=== PATIENT | female | born 1960 | race Two or more races ===

== ENCOUNTER 2016-12-08 18:19 | Emergency (ER) | payer MEDICARE, OTHER ==
[~2016-12-08] VITALS: Ht 152.4 cm; Wt 46.7 kg
[2016-12-08 18:59] LABS: ADD UA MICROSCOPIC YES; KETONES,URINE Negative (NEGATIVE); LEUKOCYTE ESTERASE ,URINE Negative (NEGATIVE)
[2016-12-08] MEDS ORDERED: IV NS 0.9% 1,000 ML BAG IV ONE (19:00)
[2016-12-08] MEDS ORDERED: KETOROLAC TROMETHAMINE INJ 30 MG/ML VIAL IV ONE (19:00)
[2016-12-08 19:09] LABS: ADD URINE CULTURE NO; RBC,URINE 0-2 /HPF (0-2); WBC,URINE 0-2 /HPF (0-3)
[2016-12-08] MEDS ORDERED: KETOROLAC TROMETHAMINE 15 MG/ML VIAL ONE (19:09)
[2016-12-08] MEDS ORDERED: IV SET PRIMARY 1 EA INFUS.SET MC ONE (19:09)
[2016-12-08] MEDS ORDERED: IV NS 0.9% 1,000 ML ONE (19:10)
[2016-12-08 19:15] LABS: BASOPHILS # (AUTO) 0.1 /CMM (0.0-0.2); BASOPHILS % (AUTO) 0.5 % (0.0-2.0); DIFF TOTAL % 100 %; EOSINOPHILS # (AUTO) 0.2 /CMM (0.0-0.7); HEMATOCRIT 39 % (33-45); HEMOGLOBIN 13.1 g/dL (11.5-14.8); LYMPHOCYTES # (AUTO) 2.5 /CMM (0.8-4.8); LYMPHOCYTES % (AUTO) 23.7 % (20.0-44.0); MEAN CORPUSCULAR HEMOGLOBIN 30 PG (26.0-33.0); MEAN CORPUSCULAR HGB CONC 34 g/dl (31.0-36.0); MEAN CORPUSCULAR VOLUME 88 fL (82-100); MONOCYTES # (AUTO) 0.7 /CMM (0.1-1.30); MONOCYTES % (AUTO) 6.3 % (2.0-12.0); NEUTROPHILS # (AUTO) 7.2 /CMM (1.8-8.9); NEUTROPHILS % (AUTO) 67.5 % (43.0-81.0); PLATELET COUNT (AUTO) 150 /CMM (150-450); RED BLOOD CELL COUNT(AUTO) 4.39 MIL/uL (4.0-5.2); WHITE BLOOD COUNT (AUTO) 10.7 K/uL (4.3-11.0)
[2016-12-08 19:21] LABS: CALCIUM, SERUM 7.7 mg/dL (8.5-10.1); CREATININE 0.9 mg/dL (0.6-1.3); POTASSIUM 3.1 mmol/L (3.5-5.1)
[2016-12-08] MEDS ORDERED: CT SWABBABLE VALVE TRANS SET 1 EA INFUS.SET MC ONE (19:32)
[2016-12-08] MEDS ORDERED: IOHEXOL-300 100 ML VIAL IV ONE (19:32)
[2016-12-08] MEDS ORDERED: IV NS 0.9% 250 ML IV ONE (19:32)
[2016-12-08] MEDS ORDERED: POTASSIUM CHLORIDE 20 MEQ TAB.PRT.SR PO ONE ×2 (20:12→20:30)
[2016-12-08] MEDS ORDERED: HYDROCODONE/APAP 10/325MG 1 EA TABLET ONE (22:22)
[2016-12-08] MEDS ORDERED: HYDROCODONE/APAP 10/325MG 1 EA TABLET PO ONE (22:30)
[2016-12-08 22:45] VITALS: BP 130/64
== END 2016-12-08 22:46 | disposition home or self-care (01) ==
LOC: ER 18:21
DX: R10.2 Pelvic and perineal pain (principal); R22.9 Localized swelling, mass and lump, unspecified; I10 Essential (primary) hypertension; G89.29 Other chronic pain; F17.210 Nicotine dependence, cigarettes, uncomplicated
CPT/HCPCS: 36415; 74160; 80048; 81001; 85025; 96374; 99285; A4606 ×2; J1885; J7030; J7050; Q9967; 81000-TC; Z7610

== ENCOUNTER 2019-07-13 13:20 | Outpatient (CLI) | payer MEDICARE, OTHER | END 2019-07-13 23:59 | disposition home health service (06) | LOC: WOU 13:20 | PROVIDERS: ATTEND Surgery | DX: T81.89XA Other complications of procedures, not elsewhere classified, initial encounter (principal); C22.9 Malignant neoplasm of liver, not specified as primary or secondary; B18.2 Chronic viral hepatitis C; E46 Unspecified protein-calorie malnutrition; Z68.20 Body mass index [BMI] 20.0-20.9, adult; R64 Cachexia; F17.210 Nicotine dependence, cigarettes, uncomplicated | CPT/HCPCS: 11043; A6407 ==

== ENCOUNTER 2019-07-20 13:24 | Outpatient (CLI) | payer MEDICARE, OTHER | END 2019-07-20 23:59 | disposition home health service (06) | LOC: WOU 13:24 | PROVIDERS: ATTEND Surgery | DX: T81.89XA Other complications of procedures, not elsewhere classified, initial encounter (principal); C22.9 Malignant neoplasm of liver, not specified as primary or secondary; B19.20 Unspecified viral hepatitis C without hepatic coma; E46 Unspecified protein-calorie malnutrition; Z68.20 Body mass index [BMI] 20.0-20.9, adult; R64 Cachexia; F17.210 Nicotine dependence, cigarettes, uncomplicated | CPT/HCPCS: 11043; J3490 ==

== ENCOUNTER 2019-08-03 13:45 | Outpatient (CLI) | payer MEDICARE, OTHER | END 2019-08-03 23:59 | disposition home health service (06) | LOC: WOU 13:45 | PROVIDERS: ATTEND Surgery | DX: T81.89XA Other complications of procedures, not elsewhere classified, initial encounter (principal); C22.9 Malignant neoplasm of liver, not specified as primary or secondary; F17.210 Nicotine dependence, cigarettes, uncomplicated; B19.20 Unspecified viral hepatitis C without hepatic coma; E46 Unspecified protein-calorie malnutrition; Z68.20 Body mass index [BMI] 20.0-20.9, adult; R64 Cachexia; Z79.899 Other long term (current) drug therapy | CPT/HCPCS: 11043 ==

== ENCOUNTER 2019-08-10 13:25 | Outpatient (CLI) | payer MEDICARE, OTHER | END 2019-08-10 23:59 | disposition home health service (06) | LOC: WOU 13:25 | PROVIDERS: ATTEND Surgery | DX: T81.89XA Other complications of procedures, not elsewhere classified, initial encounter (principal); C22.9 Malignant neoplasm of liver, not specified as primary or secondary; B18.2 Chronic viral hepatitis C; F17.210 Nicotine dependence, cigarettes, uncomplicated; E46 Unspecified protein-calorie malnutrition; Z68.20 Body mass index [BMI] 20.0-20.9, adult; R64 Cachexia | CPT/HCPCS: 11043 ==

== ENCOUNTER 2019-08-24 13:53 | Outpatient (CLI) | payer MEDICARE, OTHER | END 2019-08-24 23:59 | disposition home health service (06) | LOC: WOU 13:53 | PROVIDERS: ATTEND Surgery | DX: T81.89XA Other complications of procedures, not elsewhere classified, initial encounter (principal); C22.9 Malignant neoplasm of liver, not specified as primary or secondary; B18.2 Chronic viral hepatitis C; E46 Unspecified protein-calorie malnutrition; Z68.20 Body mass index [BMI] 20.0-20.9, adult; R64 Cachexia; F17.210 Nicotine dependence, cigarettes, uncomplicated; Z79.899 Other long term (current) drug therapy | CPT/HCPCS: 11043; A6407 ==

== ENCOUNTER 2019-09-07 13:12 | Outpatient (CLI) | payer MEDICARE, OTHER | END 2019-09-07 23:59 | disposition home health service (06) | LOC: WOU 13:12 | PROVIDERS: ATTEND Surgery | DX: T81.89XA Other complications of procedures, not elsewhere classified, initial encounter (principal); C22.9 Malignant neoplasm of liver, not specified as primary or secondary; B18.2 Chronic viral hepatitis C; E46 Unspecified protein-calorie malnutrition; Z68.20 Body mass index [BMI] 20.0-20.9, adult; R64 Cachexia; Z79.899 Other long term (current) drug therapy | CPT/HCPCS: 11043; A6407 ==

== ENCOUNTER 2019-09-21 14:00 | Outpatient (CLI) | payer MEDICARE, OTHER | END 2019-09-21 23:59 | disposition home health service (06) | LOC: WOU 14:00 | PROVIDERS: ATTEND Surgery | DX: T81.89XA Other complications of procedures, not elsewhere classified, initial encounter (principal); C22.9 Malignant neoplasm of liver, not specified as primary or secondary; B18.2 Chronic viral hepatitis C; E46 Unspecified protein-calorie malnutrition; Z68.20 Body mass index [BMI] 20.0-20.9, adult; R64 Cachexia; F17.210 Nicotine dependence, cigarettes, uncomplicated; I10 Essential (primary) hypertension; Z92.21 Personal history of antineoplastic chemotherapy; Z79.899 Other long term (current) drug therapy | CPT/HCPCS: 11043 ==

== ENCOUNTER 2019-09-28 13:30 | Outpatient (CLI) | payer MEDICARE, OTHER | END 2019-09-28 23:59 | disposition home health service (06) | LOC: WOU 13:30 | PROVIDERS: ATTEND Surgery | DX: T81.89XA Other complications of procedures, not elsewhere classified, initial encounter (principal); C22.9 Malignant neoplasm of liver, not specified as primary or secondary; B18.2 Chronic viral hepatitis C; E46 Unspecified protein-calorie malnutrition; Z68.20 Body mass index [BMI] 20.0-20.9, adult; R64 Cachexia; F17.210 Nicotine dependence, cigarettes, uncomplicated; Z92.21 Personal history of antineoplastic chemotherapy; Z79.899 Other long term (current) drug therapy | CPT/HCPCS: 11043 ==

== ENCOUNTER 2019-10-19 12:30 | Outpatient (CLI) | payer MEDICARE, OTHER | END 2019-10-19 23:59 | disposition home health service (06) | LOC: WOU 12:30 | PROVIDERS: ATTEND Surgery | DX: T81.89XA Other complications of procedures, not elsewhere classified, initial encounter (principal); C22.9 Malignant neoplasm of liver, not specified as primary or secondary; B18.2 Chronic viral hepatitis C; F17.210 Nicotine dependence, cigarettes, uncomplicated; E46 Unspecified protein-calorie malnutrition; Z68.20 Body mass index [BMI] 20.0-20.9, adult; R64 Cachexia; Z92.21 Personal history of antineoplastic chemotherapy; Z79.899 Other long term (current) drug therapy | CPT/HCPCS: 11043 ==

== ENCOUNTER 2019-11-09 12:30 | Outpatient (CLI) | payer MEDICARE, OTHER, MEDICAID | END 2019-11-09 23:59 | disposition home health service (06) | LOC: WOU 12:30 | PROVIDERS: ATTEND Surgery | DX: T81.89XA Other complications of procedures, not elsewhere classified, initial encounter (principal); C22.9 Malignant neoplasm of liver, not specified as primary or secondary; B18.2 Chronic viral hepatitis C; F17.210 Nicotine dependence, cigarettes, uncomplicated; Z79.899 Other long term (current) drug therapy | CPT/HCPCS: 11043 ==

== ENCOUNTER 2019-11-23 13:30 | Outpatient (CLI) | payer MEDICARE, OTHER | END 2019-11-23 23:59 | disposition home health service (06) | LOC: WOU 13:30 | PROVIDERS: ATTEND Surgery | DX: T81.89XA Other complications of procedures, not elsewhere classified, initial encounter (principal); C22.9 Malignant neoplasm of liver, not specified as primary or secondary; B18.2 Chronic viral hepatitis C; E46 Unspecified protein-calorie malnutrition; Z68.20 Body mass index [BMI] 20.0-20.9, adult; I10 Essential (primary) hypertension; F17.210 Nicotine dependence, cigarettes, uncomplicated; Z92.21 Personal history of antineoplastic chemotherapy; Z79.899 Other long term (current) drug therapy | CPT/HCPCS: 11042 ==

== ENCOUNTER 2019-12-14 09:15 | Outpatient (CLI) | payer MEDICARE, OTHER | END 2019-12-14 23:59 | disposition home health service (06) | LOC: WOU 09:15 | PROVIDERS: ATTEND Surgery | DX: T81.89XA Other complications of procedures, not elsewhere classified, initial encounter (principal); C22.9 Malignant neoplasm of liver, not specified as primary or secondary; B18.2 Chronic viral hepatitis C; R64 Cachexia; E46 Unspecified protein-calorie malnutrition; Z68.20 Body mass index [BMI] 20.0-20.9, adult; F17.210 Nicotine dependence, cigarettes, uncomplicated; I10 Essential (primary) hypertension; Z79.899 Other long term (current) drug therapy; Z92.21 Personal history of antineoplastic chemotherapy | CPT/HCPCS: 11043; A6407; J3490 ==

== ENCOUNTER 2019-12-16 09:30 | Outpatient (CLI) | payer MEDICARE, OTHER | END 2019-12-16 23:59 | disposition home health service (06) | LOC: WOU 09:30 | PROVIDERS: ATTEND Surgery | DX: T81.89XA Other complications of procedures, not elsewhere classified, initial encounter (principal); F17.210 Nicotine dependence, cigarettes, uncomplicated; B18.2 Chronic viral hepatitis C; Z92.21 Personal history of antineoplastic chemotherapy; E46 Unspecified protein-calorie malnutrition; C22.8 Malignant neoplasm of liver, primary, unspecified as to type | CPT/HCPCS: 11043; A6407 ==

== ENCOUNTER 2019-12-21 08:50 | Outpatient (CLI) | payer MEDICARE, OTHER | END 2019-12-21 23:59 | disposition home health service (06) | LOC: WOU 08:50 | PROVIDERS: ATTEND Surgery | DX: T81.89XA Other complications of procedures, not elsewhere classified, initial encounter (principal); C22.9 Malignant neoplasm of liver, not specified as primary or secondary; B18.2 Chronic viral hepatitis C; E46 Unspecified protein-calorie malnutrition; Z68.20 Body mass index [BMI] 20.0-20.9, adult; R64 Cachexia; Z79.899 Other long term (current) drug therapy | CPT/HCPCS: 11043 ==

== ENCOUNTER 2019-12-28 09:30 | Outpatient (CLI) | payer MEDICARE, OTHER | END 2019-12-28 23:59 | disposition home health service (06) | LOC: WOU 09:30 | PROVIDERS: ATTEND Surgery | DX: T81.89XA Other complications of procedures, not elsewhere classified, initial encounter (principal); C22.9 Malignant neoplasm of liver, not specified as primary or secondary; B18.2 Chronic viral hepatitis C; E46 Unspecified protein-calorie malnutrition; Z68.20 Body mass index [BMI] 20.0-20.9, adult; R64 Cachexia; Z79.899 Other long term (current) drug therapy; F17.210 Nicotine dependence, cigarettes, uncomplicated | CPT/HCPCS: 11043 ==

== ENCOUNTER 2019-12-30 14:00 | Outpatient (CLI) | payer MEDICARE, OTHER | END 2019-12-30 23:59 | disposition home health service (06) | LOC: WOU 14:00 | PROVIDERS: ATTEND Surgery | DX: T81.89XA Other complications of procedures, not elsewhere classified, initial encounter (principal); B18.2 Chronic viral hepatitis C; Z92.21 Personal history of antineoplastic chemotherapy; F17.210 Nicotine dependence, cigarettes, uncomplicated; I10 Essential (primary) hypertension; E46 Unspecified protein-calorie malnutrition | CPT/HCPCS: 11043 ==

== ENCOUNTER 2020-01-04 09:10 | Outpatient (CLI) | payer MEDICARE, OTHER | END 2020-01-04 23:59 | disposition home health service (06) | LOC: WOU 09:10 | PROVIDERS: ATTEND Surgery | DX: T81.89XA Other complications of procedures, not elsewhere classified, initial encounter (principal); C22.8 Malignant neoplasm of liver, primary, unspecified as to type; B18.2 Chronic viral hepatitis C; E46 Unspecified protein-calorie malnutrition; Z68.20 Body mass index [BMI] 20.0-20.9, adult; R64 Cachexia; I10 Essential (primary) hypertension; F17.210 Nicotine dependence, cigarettes, uncomplicated; Z79.899 Other long term (current) drug therapy | CPT/HCPCS: 11042 ==

== ENCOUNTER 2020-01-11 09:30 | Outpatient (CLI) | payer MEDICARE, OTHER | END 2020-01-11 23:59 | disposition home health service (06) | LOC: WOU 09:30 | PROVIDERS: ATTEND Surgery | DX: T81.89XD Other complications of procedures, not elsewhere classified, subsequent encounter (principal); C22.8 Malignant neoplasm of liver, primary, unspecified as to type; B18.2 Chronic viral hepatitis C; E46 Unspecified protein-calorie malnutrition; Z68.20 Body mass index [BMI] 20.0-20.9, adult; R64 Cachexia; F17.210 Nicotine dependence, cigarettes, uncomplicated; I10 Essential (primary) hypertension; Z79.899 Other long term (current) drug therapy | CPT/HCPCS: G0463 ==

== ENCOUNTER 2020-01-21 12:15 | Outpatient (CLI) | payer MEDICARE, OTHER | END 2020-01-21 23:59 | disposition home or self-care (01) | LOC: WOU 12:15 | PROVIDERS: ATTEND Surgery | DX: T81.89XD Other complications of procedures, not elsewhere classified, subsequent encounter (principal); C22.9 Malignant neoplasm of liver, not specified as primary or secondary; B18.2 Chronic viral hepatitis C; E46 Unspecified protein-calorie malnutrition; Z68.20 Body mass index [BMI] 20.0-20.9, adult; R64 Cachexia; F17.210 Nicotine dependence, cigarettes, uncomplicated; Z92.21 Personal history of antineoplastic chemotherapy; Z79.899 Other long term (current) drug therapy | CPT/HCPCS: G0463 ==